=== PATIENT | male | born 1970 | race Caucasian/White ===

== ENCOUNTER 2019-02-01 17:59 | Emergency (ER) | payer SELFPAY ==
[~2019-02-01] VITALS: Ht 188 cm; Wt 86.2 kg
[2019-02-01 18:52] VITALS: BP 109/72
--- NOTE | 2019-02-01 18:53 | PHYS DOC ---
Past History Past Medical History: No Pertinent History Past Surgical History: No Surgical History Smoking: Non-smoker Alcohol Use: Rarely Drug Use: None Adult General Chief Complaint Chief Complaint: LOWER BACK PAIN OR INJURY HPI HPI Patient is a 68-year-old male presents with left shoulder pain that has been getting worse over the past 2 months. No identifiable initial trauma. 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 He is right-hand dominant. Increased pain with movement. No numbness or tingling. It is diffuse around the left shoulder and going into the back. No association with exertion. He does note a decreased active range of motion with the discomfort. He has not sought any prior medical care for this. No significant relief with acetaminophen or [id number] ibuprofen. Pain is moderate to severe in intensity.[] Review of Systems Review of Systems Constitutional: Denies fever or chills [] Eyes: Denies change in visual acuity, redness, or eye pain [] HENT: Denies nasal congestion or sore throat [] Respiratory: Denies cough or shortness of breath [] Cardiovascular: No chest pain or palpitations[] GI: Denies abdominal pain, nausea, vomiting, bloody stools or diarrhea [] : Denies dysuria or hematuria [] Musculoskeletal: Denies back pain, see history of present illness[] Integument: Denies rash or skin lesions [] Neurologic: Denies headache, focal weakness or sensory changes [] Endocrine: Denies polyuria or polydipsia [] All other systems were reviewed and found to be within normal limits, except as documented in this note. Current Medications Current Medications Current Medications Medications (Trade) Dose Ordered Sig/[facility] Start Time Stop Time Status Last Admin Dose Admin Naproxen (Naprosyn) 500 mg 1X ONCE 02/01/19 18:45 02/01/19 18:46 UNV Physical Exam Physical Exam Constitutional: Well developed, well nourished, no acute distress, non-toxic appearance. [] HENT: Normocephalic, atraumatic, bilateral external ears normal, oropharynx moist, no oral exudates, nose normal. [] Eyes: PERRLA, EOMI, conjunctiva normal, no discharge. [] Neck: Normal range of motion, no tenderness, supple, no stridor. [] Cardiovascular:Heart rate regular rhythm, no murmur [] Lungs & Thorax: Bilateral breath sounds clear to auscultation [] Abdomen: Not examined. [] Skin: Warm, dry, no erythema, no rash. [] Back: No tenderness, no CVA tenderness. [] Extremities: Left shoulder has diffuse tenderness to palpation. Decreased active range of motion to 90 in both abduction as well as flexion. No elbow tenderness. No bony prominence tenderness. No pain with axial loading of the humerus. No clavicular tenderness. Patient is distally neurovascularly intact. A joint above and a joined below were evaluated and were normal. No tenderness, no cyanosis, no clubbing, ROM intact, no edema. [] Neurologic: Alert and oriented X 3, normal motor function, normal sensory function, no focal deficits noted. [] Psychologic: Affect normal, judgement normal, mood normal. [] EKG EKG [] Radiology/Procedures Radiology/Procedures X-ray of the left shoulder shows no evidence of a fracture or dislocation. No evidence of bony tumor.[] Course & Med Decision Making Course & Med Decision Making Pertinent Labs and Imaging studies reviewed. (See chart for details) ED course: Patient arrived, was placed in bed, and tolerated exam well. He was given pain medicine. He was transported to and from radiology with any complications. After return the imaging findings, these were discussed with the patient voiced understanding. All questions were answered. He was discharged in improved condition. Medical decision making: There is no evidence of a fracture, dislocation, neurologic or vascular compromise. No evidence of this being an acute coronary syndrome. There may be an impingement or rotator cuff issue given the decreased range of motion. This can be followed by primary care physician as an outpatient.[] Dragon Disclaimer Dragon Disclaimer This electronic medical record was generated, in whole or in part, using a voice recognition dictation system. Departure Departure: Impression: Primary Impression: Left shoulder pain Disposition: HOME, SELF-CARE Condition: IMPROVED Referrals: MALLORY QUINONES (PCP) Patient Instructions: Shoulder Pain Additional Instructions: Follow-up with your regular doctor in 2 days. If you do not have regular doctor list of local clinics will be provided. While there is no evidence of a fracture or dislocation on today's x-rays, you may need to have more advanced imaging such as an MRI to determine if there is rotator cuff or cartilage issues triggering the pain. This can be arranged by your primary care physician. Return to the ER if worsening pain, weakness, or any other concerns. Scripts Prednisone (PREDNISONE) 50 Mg Tablet 1 TAB PO DAILY for INFLAMMATION, #5 TAB Prov: VIDAL CHIN DO 02/01/19 Meloxicam (MELOXICAM) 7.5 Mg Tablet 7.5 MG PO DAILY for PAIN, #20 TAB Prov: VIDAL CHIN DO 02/01/19 Problem Qualifiers Primary Impression: Left shoulder pain Chronicity: unspecified Qualified Codes: M25.512 - Pain in left shoulder VIDAL CHIN DO Feb 01, 2019 18:53
[2019-02-01] MEDS ORDERED: PRED50TA PO (19:11)
[2019-02-01] MEDS ORDERED: MELO7.5T29 PO (19:11)
--- NOTE | 2019-02-01 19:14 | RAD ---
Three-view left shoulder dated 02/01/2019. No comparison available. Clinical data indication: Pain. FINDINGS: 3 views of left shoulder show normal bony alignment. No displaced fracture. No acute osseous or articular abnormality. IMPRESSION: No acute findings. Electronically signed by: Tomas Meléndez MD (02/01/2019 7:11 PM) [facility]
[2019-02-01] MEDS ORDERED: NAPROXEN 500 MG TABLET PO ONE (19:15)
== END 2019-02-01 19:27 | disposition home or self-care (01) ==
LOC: ER 17:59
DX: M25.512 Pain in left shoulder (principal)
CPT/HCPCS: 73030; 99284